=== PATIENT | male | born 1960 | race Caucasian/White ===

== ENCOUNTER 2016-08-08 17:34 | Inpatient (IN) ==
[2016-08-08 18:31] LABS: Basophils # 0.1 10*3/uL (0.0-0.2); Basophils % 0.6 % (0.0-0.8); Eosinophils # 0.2 10*3/uL (0.0-0.87); Eosinophils % 2.4 % (0.00-10.9); Hematocrit 49.7 VOL% (42.0-52.0); Hemoglobin 16.7 GM/DL (14.0-18.0); Immature Granulocytes % 0.3 %; Immature Granulocytes Absolute 0.03 #; Mean Corpuscular HGB Conc 33.6 GM/DL (32-36); Mean Corpuscular Hemoglobin 29 PG (27-34); Mean Corpuscular Volume 87.3 FL (87-102); Mean Platelet Volume 11.1 FL (9.6-12.0); Monocytes # 0.8 10*3/uL (0.11-0.8); Monocytes % 8.3 % (1.7-12.7); Neutrophils # 5.6 10*3/uL (1.4-7.4); Neutrophils % 57.4 % (38.7-73.9); Platelet Count 209 10*3/uL (130-400); Red Blood Count 5.69 10*6/uL (3.8-5.5); Red Cell Distribution Width 13.6 % (9.3-17.3); White Blood Count 9.7 10*3/uL (4.5-13.71)
--- NOTE | 2016-08-08 18:33 | CT Report ---
CT head/brain wo con Indication: Right-sided facial numbness. Comparison: None. Technique: CT of the brain was performed without administration of intravenous contrast. Findings: There is no evidence of acute intracranial hemorrhage, mass, or infarction. Ventricles appear within normal limits. The basal cisterns are patent. Nonspecific increased attenuation is noted within the sagittal and transverse sinuses. This could represent slow flow or thrombus. No significant abnormality is otherwise demonstrated to involve the posterior fossa or cerebellum. Orbits and globes demonstrate no evidence of significant pathology. The paranasal sinuses are clear. No significant abnormality is demonstrated to involve the mastoid air cells. The calvarium and overlying soft tissues demonstrate no evidence of acute pathology. Impression: 1. Increased attenuation present within the sagittal and transverse sinuses is nonspecific in appearance and may reflect evidence of slow flow. MRI brain without intravenous contrast administration is recommended to exclude acute ischemia. Evaluation of flow-voids within the transverse and sagittal sinus additionally can be performed with noncontrast enhanced MRI brain. 08/08/2016 6:27 PM PROCEDURE INTERPRETED AT [facility] DEPARTMENT OF RADIOLOGY Final Report Signed by: Dr. Juan Miller
--- NOTE | 2016-08-08 18:34 | XRay Report ---
XR chest 2V Indication: Right-sided facial numbness. Comparison: None. Technique: PA and lateral chest x-ray was performed. Findings: The heart size is within normal limits. The mediastinal contour demonstrates no significant abnormality. The lungs are clear. Bones and soft tissues demonstrate no acute abnormality. Impression: 1. No active cardiopulmonary disease. 08/08/2016 6:31 PM PROCEDURE INTERPRETED AT [facility] DEPARTMENT OF RADIOLOGY Final Report Signed by: Dr. Juan Miller
[2016-08-08 18:41] LABS: PT Patient Result 10.1 SECS
[2016-08-08 19:06] LABS: Blood Urea Nitrogen 7 MG/DL (7-18); Glucose 94 MG/DL (74-106); Magnesium 2.2 MG/DL (1.8-2.4); Osmolality,Calculated 283.8 MOS/KG (273-304); Sodium 144 MMOL/L (136-145); Troponin I Only < 0.015 NG/ML (0.00-0.045)
--- NOTE | 2016-08-08 19:41 | Emergency Department Note ---
Stacia Handy Brittany, am scribing for, and in the presence of, Suleman Miller MD 18:29. Paul Handy Robert M, MD, personally performed the services described in this documentation, ascribed by Mana Palomo in my presence, and it is both accurate and complete 941 . Arrival - Arrival Chief Complaint: Neuro Stated Complaint: RIGHT SIDE PAIN/R SIDE OF FACE NUMB ED Nursing Triage Note: reports stabbing type pain in his right lower quadrant for about a month. reports at about 1530 he developed a h/a and tingling in the right side of his face. reports that he gets dizzy and its hard to keep his balance when he stands up. Mode of Arrival: Ambulatory Limitations: No Limitations Source: Patient - History of Present Illness HPI Narrative: This is a 55 y/o white male,who presents to the ED for neurological evaluation. He states last night he started to have right sided facial numbness. This morning he reports feeling dizzy and an unsteady balance. Pt states at 1500 today he was unable to close his right eye. He also reports tingling to the right hand fingers. He denies any cough or congestion. Pt has no other complaints/pain in the ED at this time. Pt has a PMHx of HTN. Pt denies a surgical Hx. Pt denies a family medical Hx. Pt is a current every day smoker, but denies the use of alcohol or street drugs. Onset (ago): hour(s) (Started last night) Consistency: constant Severity: moderate Allergies/Adverse Reactions: Allergies Allergy/AdvReac Type Severity Reaction Status Date / Time lisinopril Allergy Unknown/Unable Verified 08/08/16 17:46 to obtain Home Medications: Home Medications Medication Instructions Recorded Confirmed Type Irbesartan 150 mg PO DAILY 08/08/16 08/08/16 History amLODIPine [Norvasc] 10 mg PO DAILY 08/08/16 08/08/16 History Review of System - Review of System 12 point system: reviewed and no additional remarkable complaints except as stated - Review of System Respiratory: Absent: cough Neurological: Present: headache, numbness (Numbness to the right side of the face), abnormal gait, other (Tingling to the right fingers) Medical,Surgical,& Family Hx - Medical History Cardio: History of: Hypertension - Social History Smoking Status: Current every day smoker Frequency of Alcohol Use: None Type of Drug Use: None Exam Vital Signs: Vital Signs Temperature 98.1 F 08/08/16 17:41 Pulse Rate 83 08/08/16 18:04 Respiratory Rate 20 08/08/16 18:04 Blood Pressure 163/109 08/08/16 18:04 O2 Sat by Pulse Oximetry 98 08/08/16 18:04 - General General appearance: alert, in no apparent distress - Head Head exam: Present: atraumatic, normocephalic, normal inspection - Eye Eye exam: Present: normal appearance, PERRL, EOMI - ENT ENT exam: Present: normal exam, normal oropharynx, mucous membranes moist - Neck Neck exam: Present: normal inspection, full ROM. Absent: tenderness - Chest Chest inspection: Present: normal inspection. Absent: abscess - Respiratory Respiratory exam: Present: normal lung sounds bilaterally. Absent: prolonged expiratory phase, rales, respiratory distress, rhonchi, stridor, wheezes - Cardiovascular Cardiovascular exam: Present: regular rate, normal rhythm, normal heart sounds. Absent: murmur, rubs, gallop, clicks - Abdominal Exam Abdominal exam: Present: soft. Absent: distention, tenderness, guarding, rebound, rigidity - Extremities Exam Extremities exam: Present: normal inspection, full ROM. Absent: tenderness, pedal edema, calf tenderness - Back Exam Back exam: Present: normal inspection, full ROM. Absent: tenderness, muscle spasm, rashes - Neurological Exam Neurological exam: Present: alert, oriented X3, CN II-XII intact, other (Mild decreased strenght to the right side) - Psychiatric Psychiatric exam: Present: normal affect, normal mood. Absent: agitated, anxious - Skin Skin exam: Present: warm, intact. Absent: diaphoresis Course - Consultations Consultation #1: The hospitalists will evaluate and admit the patient. Dr. Pb Hall was notified. Time: 19:41 Results - Labs CBC & BMP: 08/08/16 18:22 08/08/16 18:22 Lab Results: I have reviewed the patients labs Labs: Lab Results WBC 9.7 10*3/uL (4.5-13.71) 08/08/16 18:22 RBC 5.69 10*6/uL (3.8-5.5) H 08/08/16 18:22 Hgb 16.7 GM/DL (14.0-18.0) 08/08/16 18:22 Hct 49.7 VOL% (42.0-52.0) 08/08/16 18:22 MCV 87.3 FL (87-102) 08/08/16 18:22 MCH 29 PG (27-34) 08/08/16 18: MCHC 33.6 GM/DL (32-36) 08/08/16 18:22 RDW 13.6 % (9.3-17.3) 08/08/16 18:22 Plt Count 209 10*3/uL (130-400) 08/08/16 18:22 MPV 11.1 FL (9.6-12.0) 08/08/16 18: Neut % (Auto) 57.4 % (38.7-73.9) 08/08/16 18:22 Lymph % (Auto) 31.0 % (21.2-54.2) 08/08/16 18:22 [place] % (Auto) 8.3 % (1.7-12.7) 08/08/16 18:22 Eos % (Auto) 2.4 % (0.00-10.9) 08/08/16 18: Baso % (Auto) 0.6 % (0.0-0.8) 08/08/16 18: Neut # (Auto) 5.6 10*3/uL (1.4-7.4) 08/08/16 18:22 Lymph # (Auto) 3.0 10*3/uL (1.4-4.0) 08/08/16 18:22 [place] # (Auto) 0.8 10*3/uL (0.11-0.8) 08/08/16 18:22 Eos # (Auto) 0.2 10*3/uL (0.0-0.87) 08/08/16 18:22 Baso # (Auto) 0.1 10*3/uL (0.0-0.2) 08/08/16 18:22 Immature Gran % 0.3 % 08/08/16 18:22 Nucleated RBC % 0.0 /100WBC 08/08/16 18:22 Immature Gran # 0.03 # 08/08/16 18:22 Nucleated RBCs # 0.00 10*3/uL 08/08/16 18:22 INR 1.0 08/08/16 18:22 PT Patient/Control Mix 10.1 SECS 08/08/16 18:22 Sodium 144 MMOL/L (136-145) 08/08/16 18:22 Potassium 4.0 MMOL/L (3.5-5.1) 08/08/16 18:22 Chloride 107 MMOL/L (98-107) 08/08/16 18:22 Carbon Dioxide 28 MMOL/L (21-32) 08/08/16 18:22 Anion Gap 13.0 MMOL/L (5.0-15.0) 08/08/16 18:22 BUN 7 MG/DL (7-18) 08/08/16 18:22 Creatinine 0.90 MG/DL (0.70-1.30) 08/08/16 18:22 GFR Calculation 120 ML/MIN 08/08/16 18:22 BUN/Creatinine Ratio 7.00 RATIO (6.00-20.00) 08/08/16 18:22 Glucose 94 MG/DL (74-106) 08/08/16 18:22 Calculated Osmolality 283.8 MOS/KG (273-304) 08/08/16 18:22 Calcium 9.0 MG/DL (8.5-10.1) 08/08/16 18:22 Magnesium 2.2 MG/DL (1.8-2.4) 08/08/16 18:22 Total Creatine Kinase 136 U/L (39-308) 08/08/16 18:22 CK-MB (CK-2) 1.3 U/L (0.5-3.6) 08/08/16 18:22 Troponin I < 0.015 NG/ML (0.00-0.045) 08/08/16 18:22 Lipase 96.0 U/L (73-393) 08/08/16 18:22 - EKG EKG results: interpreted by [facility], WNL, sinus rhythm - Diagnostic Findings Procedure: Chest x-ray: report reviewed by me Disposition Clinical Impression: right facial paresthesias/weakness Case discussed with: patient, patient's family Disposition: Still a Patient Condition: Stable Time of Disposition: 19:40
--- NOTE | 2016-08-08 20:24 | Hospitalist History & Physical ---
Assessment and Plan (1) History of unsteady gait Status: Acute Current Visit: Yes (2) Facial numbness Status: Acute Current Visit: Yes (3) Right sided weakness Status: Acute Current Visit: Yes (4) Stroke-like symptoms Status: Acute Current Visit: Yes (5) Abdominal pain Status: Acute Assessment and plan: Plan for this patient #1 admit the patient to our service #2 monitored bed #3 neurological evaluation #4Number for MRI evaluation #5 carotid Dopplers #6 fasting lipid profile #7 aspirin #8 CT scan of abdomen Current Visit: Yes History of Present Illness Chief complaint: facial numbness History of present illness: Mr. Guzman is a 55 year old male past medical history significant for hypertension who presents to our hospital tonight. Patient reports last night that he noticed that he had right facial numbness. He thought he slept wrong on it and didn't think that much about it. This morning he woke up and feel dizzy and had a unsteady balance. Today at approximate 3 p.m. he is closed and he reports a tingling in his right index and third finger. He denies cough and just congestion reports a headache any really has no other complaints at this time other than some abdominal pain. Regarding his abdominal pain he's been having a dull pain is been going off and on for over a year. Seems like it's increased last night also. Slight ripping sensation and sharp. Patient came to our hospital for further evaluation I was consulted to admit him. Home Medications Medication Instructions Recorded Confirmed Type Irbesartan 150 mg PO DAILY 08/08/16 08/08/16 History amLODIPine [Norvasc] 10 mg PO DAILY 08/08/16 08/08/16 History Allergies Allergy/AdvReac Type Severity Reaction Status Date / Time lisinopril Allergy Unknown/Unable Verified 08/08/16 17:46 to obtain Medical,Surgical,& Family Hx - Medical History Cardio: History of: Hypertension - Surgical History Abdominal Surgeries: Surgical HX of: Appendectomy Orthopedic Surgeries: Surgical HX of;: Orthopedic Surgery - Family History Family History: Reports;: Family Hypertension, Family Stroke - Social History Smoking Status: Current every day smoker Frequency of Alcohol Use: None Type of Drug Use: None 12 point system: reviewed and no additional remarkable complaints except as stated Exam - Constitutional Vitals: Period Temp Pulse Resp BP Sys/Zhong Pulse Ox Last 24 Hr 98.1 F 83-94 18-20 163-169/101-109 96-98 - General General appearance: alert, in no apparent distress - Head Head exam: Present: atraumatic, normocephalic, normal inspection - Eye Eye exam: Present: normal appearance, PERRL, EOMI - ENT ENT exam: Present: normal exam, normal oropharynx, mucous membranes moist - Neck Neck exam: Present: normal inspection, full ROM. Absent: tenderness - Chest Chest inspection: Present: normal inspection. Absent: abscess - Respiratory Respiratory exam: Present: normal lung sounds bilaterally. Absent: prolonged expiratory phase, rales, respiratory distress, rhonchi, stridor, wheezes - Cardiovascular Cardiovascular exam: Present: regular rate, normal rhythm, normal heart sounds. Absent: murmur, rubs, gallop, clicks - Abdominal Exam Abdominal exam: Present: soft. Absent: distention, tenderness, guarding, rebound, rigidity - Extremities Exam Extremities exam: Present: normal inspection, full ROM. Absent: tenderness, pedal edema, calf tenderness - Back Exam Back exam: Present: normal inspection, full ROM. Absent: tenderness, muscle spasm, rashes - Neurological Exam Neurological exam: Present: alert, oriented X3, CN II-XII intact, other (Mild decreased strenght to the right side) - Psychiatric Psychiatric exam: Present: normal affect, normal mood. Absent: agitated, anxious - Skin Skin exam: Present: warm, intact. Absent: diaphoresis Results - Labs CBC & BMP: 08/08/16 18:22 08/08/16 18:22 Quality Measures - Stroke Onset of Symptoms Date: 08/08/16 Onset of Symptoms Time: 15:00
[2016-08-08] MEDS ORDERED: LABETALOL 20 MG/4 ML SYRINGE IV PRN (20:28)
--- NOTE | 2016-08-08 20:38 | CT Report ---
CT abdomen pelvis w con Indication: Right lower quadrant abdominal pain. History of umbilical hernia. Comparison: None. Technique: CT of the abdomen and pelvis was performed following administration of intravenous contrast. Findings: No acute findings are suggested within the lower chest. A small to moderate hiatal hernia is demonstrated. Liver is unremarkable in appearance. Portal vein is patent. Gallbladder demonstrates no significant abnormality. The spleen, pancreas, adrenal glands, and kidneys demonstrate no evidence of acute pathology. Aorta demonstrates diffuse intimal calcification particularly involving the infrarenal abdominal aorta. A small fusiform segment of enlargement measuring up to 2.6 cm in transverse dimension and 2.0 cm AP dimension is located just caudal the WESLEY origin. Bilateral common iliac arteries demonstrate diffuse intimal calcification. The urinary bladder is largely distended and otherwise unremarkable. The prostate appears upper limits of normal in size to minimally enlarged measuring 4.9 x 5 cm. Numerous sigmoid diverticula are present with additional diverticula noted involving the descending colon, and distal transverse large bowel. Ileocecal valve is grossly unremarkable. Appendix is normal in size. With exception of the previously described hiatal hernia, the stomach is unremarkable. Duodenum demonstrates no significant pathology. SMA is patent. Bony structures demonstrate no evidence of acute pathology. Soft tissues and musculature the body wall are unremarkable. Impression: 1. No acute findings are demonstrated. 2. Minimal fusiform enlargement of the infrarenal abdominal aorta is present just caudal the WESLEY origin. 3. Colonic diverticulosis is demonstrated without evidence of diverticulitis. 4. Other findings as detailed. 08/08/2016 8:25 PM PROCEDURE INTERPRETED AT [facility] DEPARTMENT OF RADIOLOGY Final Report Signed by: Dr. Juan Miller
[2016-08-09 06:45] LABS: Risk Ratio 4.11; VLDL CHOLESTEROL 27.4 MG/DL
[2016-08-09] MEDS ORDERED: amLODIPine 10 MG TABLET PO SCH (09:00)
[2016-08-09] MEDS ORDERED: ASPIRIN 325 MG TABLET PO SCH (09:00)
[2016-08-09] MEDS ORDERED: IRBESARTAN 150 MG TABLET PO SCH (09:00)
[2016-08-09] MEDS ORDERED: ENOXAPARIN 40 MG/0.4 ML SYRINGE SUBCUT SCH (09:00)
--- NOTE | 2016-08-09 09:20 | Ultrasound Report ---
Exam: US carotid duplex BI Date: 08/09/2016 4:00 AM Indication: Weakness, right facial numbness Technique: Duplex scan of the bilateral carotid arteries using B-mode/grayscale imaging and Doppler spectral analysis and color flow. Findings: Right Flow velocities centimeters per second Common carotid artery: 69 Proximal ICA: 65 Distal ICA: 75 External carotid artery: 97 Vertebral artery: 63 with antegrade flow ICA/CCA ratio: 1.1 Measurements in millimeters Distal ICA: 5 Left: Flow velocities centimeters per second Common carotid artery: 73 Proximal ICA: 60 Distal ICA: 83 External carotid artery: 93 Vertebral artery: 40 with antegrade flow ICA/CCA ratio: 1.1 Measurements in millimeters Distal ICA: 5 No significant atherosclerotic plaque or luminal stenosis is evident within either internal carotid artery. Minimal primarily calcified atherosclerotic plaque is noted at the left proximal internal carotid artery. Color flow is present in all visualized vessels with Doppler analysis. Impression: No significant atherosclerotic disease or luminal stenosis within either internal carotid artery. Today studies were performed utilizing indirect NASCET criteria The ultrasound images were stored and captured PROCEDURE INTERPRETED AT [facility] DEPARTMENT OF RADIOLOGY Final Report Signed by: Jet Arriola
--- NOTE | 2016-08-09 10:34 | EKG Report ---
Stationary ECG Study [facility] ER Test Date: 08/08/2016 6:04:27 PM Pat Name: SULEMAN SIGALA Department: Room: 323 Gender: M [employer]: OZZY : 1960 Requested by: Suleman Miller Order Number: [id number] Reading MD: STEPHANIE TRUJILLO Intervals [place] Rate: 82 P: 77 AR: 190 QRS: 86 QRSD: 83 T: 69 QT: 356 QTc: 395 Interpretive Statements SINUS RHYTHM Electronically Signed On 08-09-16 12:45:56 [employer] by STEPHANIE TRUJILLO [email or web address]
--- NOTE | 2016-08-09 13:28 | Magnetic Resonance Report ---
MRI brain without contrast Indication: Right facial numbness, ataxia and vertigo Comparison: CT 08 August 2016 Technique: Axial sagittal and coronal imaging of the brain is performed without contrast. T1, T2, FLAIR and diffusion weighted sequences are performed. Findings: No evidence of restricted diffusion seen. No evidence of intracranial hemorrhage, mass, mass effect or midline shift is seen. There is moderate diffuse cerebral atrophy. Otherwise the brain parenchyma has normal signal and differentiation. The ventricles and cisterns are appropriate in caliber. Posterior fossa, mid brain and pituitary gland appear within normal limits. There is increased fluid signal in the mastoid air cells on the right. Right frontal sinus disease and right ethmoid sinus disease is also seen. No other evidence of cranial or skull base abnormality seen. Impression: Fluid in the right mastoid air cells, may indicate mastoiditis. Right frontal and right ethmoidal sinus disease. PROCEDURE INTERPRETED AT [facility] DEPARTMENT OF RADIOLOGY Final Report Signed by: Dr. Shahab Priest
--- NOTE | 2016-08-09 16:11 | Neurology Consult Note ---
History of Present Illness History of present illness: Mr. Guzman is a 55 year old right-handed white gentleman with past medical history significant for hypertension, history of smoking who who is admitted to our hospital last night with right facial paresthesias. Patient reports last night that he noticed that he had right facial numbness. He thought he slept wrong on it and didn't think that much about it. This morning he woke up and feel dizzy and had a unsteady gait. In the afternoon of the day of admission he reported a tingling in his right index and third finger. He denies cough and just congestion, reports a headache and really has no other complaints at this time other than some abdominal pain. Regarding his abdominal pain he's been having a dull pain and is been going off and on for over a year. MRI of the brain revealed no acute abnormalities. Carotid ultrasound is unremarkable. Lipid profile is okay. Patient reported taking aspirin at least 4 days a week. Home Medications Medication Instructions Recorded Confirmed Type Irbesartan 150 mg PO DAILY 08/08/16 08/08/16 History amLODIPine [Norvasc] 10 mg PO DAILY 08/08/16 08/08/16 History Allergies Allergy/AdvReac Type Severity Reaction Status Date / Time lisinopril Allergy Unknown/Unable Verified 08/08/16 17:46 to obtain 12 point system: reviewed and no additional remarkable complaints except as stated Medical,Surgical,& Family Hx - Medical History Cardio: History of: Hypertension - Surgical History Abdominal Surgeries: Surgical HX of: Appendectomy Orthopedic Surgeries: Surgical HX of;: Orthopedic Surgery (left and right knee, right foot) - Family History Family History: Reports;: Family Hypertension, Family Stroke - Social History Smoking Status: Current every day smoker Frequency of Alcohol Use: None Type of Drug Use: None Exam - Constitutional Vitals: Period Temp Pulse Resp BP Sys/Zhong Pulse Ox Last 24 Hr 97.9 F-98.4 F 72-91 16-20 116-153/72-101 91-97 Exam: GENERAL: Patient is in no acute distress. NECK: Neck is supple. There is no JVD. No carotid bruits present. No thyroid masses. CVS: First and second heart sounds are normal. There is no S3 present. Regular rate and rhythm. RESPIRATORY: Lungs are clear to auscultation without any rales or rhonchi. ABDOMEN: Soft and non-tender. Bowel sounds are present. There is no hepatosplenomegaly. EXT: There is no palpable edema. Peripheral pulses are present. Skin: No rashes Central Nervous system: General: Alert, awake and Oriented x 3 Speech: Fluent Comprehension: Intact and normal Facial expressions: Normal Cranial Nerves: CN1/Olfactory: Normal CN II/ Optic: Normal, Visual Cazares unreliable CN III, and : [place] & EOMI CN V: Normal & intact CN VII: face is symmetric CNVIII: Normal CN XI/X/XI/XII: Intact and Normal Motor: Bulk and Tone is normal. Strength in the right 5/5 Strength in the left 5/5 Sensory: Grossly intact for all the modalities of PP, LT and temp sense Reflexes: 1+ and symmetrical Cerebellar function: Normal finger to nose and heel to boucher testing. Gait: Normal heel to heel and toe to toe and tandem walk. Results - Labs CBC & BMP: 08/08/16 18:22 08/08/16 18:22 Assessment and Plan (1) TIA (transient ischemic attack) Status: Acute Assessment and plan: Stop aspirin Plavix 75 mg daily Okay to go home from neuro standpoint Follow-up in 4 weeks Current Visit: Yes (2) Smoking Status: Acute Assessment and plan: Counseled him regarding cessation of smoking. Spent 15 minutes in counseling only Current Visit: Yes Specialty Discharge - Follow Up or Referrals Follow up with: Antonio Vo MD [Physician] - 1 Month - Discharge Medications No Action amLODIPine [Norvasc] 10 mg PO DAILY Irbesartan 150 mg PO DAILY
--- NOTE | 2016-08-09 16:27 | Discharge Summary ---
Hospital Course - Hospital Course Hospital Course: Mr. Guzman is a 55-year-old white male past palpation and hypertension who presented to our ER yesterday. Patient reported the previous night he noted that he had a right facial numbness. He also noted that when he woke up the following morning he felt dizzy and unsteady balance. Yesterday at approximately 3 p.m. he had a tingling sensation in his right hand involving his index finger and third finger. He had no real other complaints for some abdominal pain is been going on for a year. We did a CT scan of his abdomen in the emergency room and no abnormalities were noted with a CT scan. I admitted this patient for stroke workup. He had a MRI which was negative and a carotid ultrasound which was negative Dr. Wily Vital saw him in consultation and recommended he stop aspirin and be placed on Plavix. I'm going to discharge the patient and with outpatient follow-up with Dr. Vo. I will provide him with needed prescriptions - Time spent with patient Time with patient DS: Greater than 30 minutes Diagnosis - Discharge Diagnosis (1) History of unsteady gait Status: Acute (2) Facial numbness Status: Acute (3) Right sided weakness Status: Acute (4) Stroke-like symptoms Status: Acute (5) Abdominal pain Status: Acute Specialty Discharge - Follow Up or Referrals Follow up with: Antonio Vo MD [Physician] - 09/12/16 9:45 am (PLEASE BRING INSURANCE CARDS, PHOTO ID, AND ALL MEDICATIONS TO YOUR APPOINTMENT PLEASE.) - Discharge Medications No Action amLODIPine [Norvasc] 10 mg PO DAILY Irbesartan 150 mg PO DAILY Discharge Plan - Discharge Data Disposition: Disch To Home/Self Care Condition at Discharge: Stable Discharge Diet: advance to your usual diet - Discharge Medications New Clopidogrel [Plavix] 75 mg PO DAILY #30 tablet HYDROcodone/ACETAMIN 7.5-325 [[place] 7.5-325] 1 tablet PO Q4H PRN #20 tablet PRN Reason: Pain Moderate (4-7) Continue Irbesartan 150 mg PO DAILY #30 tablet amLODIPine [Norvasc] 10 mg PO DAILY #30 tablet - Follow Up or Referral Follow Up: Antonio Vo MD [Physician] - 09/12/16 9:45 am (PLEASE BRING INSURANCE CARDS, PHOTO ID, AND ALL MEDICATIONS TO YOUR APPOINTMENT PLEASE.) - Forms/Instructions Exam - Constitutional Vitals: Period Temp Pulse Resp BP Sys/Zhong Pulse Ox Last 24 Hr 97.9 F-98.4 F 72-91 16-20 116-153/72-101 91-97 General General appearance: alert, in no apparent distress - Head Head exam: Present: atraumatic, normocephalic, normal inspection - Eye Eye exam: Present: normal appearance, PERRL, EOMI - ENT ENT exam: Present: normal exam, normal oropharynx, mucous membranes moist - Neck Neck exam: Present: normal inspection, full ROM. Absent: tenderness - Chest Chest inspection: Present: normal inspection. Absent: abscess - Respiratory Respiratory exam: Present: normal lung sounds bilaterally. Absent: prolonged expiratory phase, rales, respiratory distress, rhonchi, stridor, wheezes - Cardiovascular Cardiovascular exam: Present: regular rate, normal rhythm, normal heart sounds. Absent: murmur, rubs, gallop, clicks - Abdominal Exam Abdominal exam: Present: soft. Absent: distention, tenderness, guarding, rebound, rigidity - Extremities Exam Extremities exam: Present: normal inspection, full ROM. Absent: tenderness, pedal edema, calf tenderness - Back Exam Back exam: Present: normal inspection, full ROM. Absent: tenderness, muscle spasm, rashes - Neurological Exam Neurological exam: Present: alert, oriented X3, CN II-XII intact, other (Mild decreased strenght to the right side) - Psychiatric Psychiatric exam: Present: normal affect, normal mood. Absent: agitated, anxious - Skin Skin exam: Present: warm, intact. Absent: diaphoresis Discharge Results Labs on day of discharge: Labs from last 24 hours 08/09/16 05:22 Triglycerides 137 Cholesterol 181 LDL Cholesterol 126.0 VLDL Cholesterol 27.4 HDL Cholesterol 44 Heart Disease Risk Ratio 4.11 DS: Provider Date of admission: 08/08/16 20:28 Primary care physician: . No PCP Attending physician on admission: Pb Hall MD Discharging clinician: Pb Hall MD
[2016-08-09] MEDS ORDERED: CLOPIDOGREL 75 MG TABLET PO SCH (16:30)
[2016-08-09 17:35] VITALS: BP 120/81
== END 2016-08-09 18:25 | disposition home or self-care (01) | DRG 69 ==
LOC: N.ED 17:34 → N.EDINP 20:28 → N.3E 21:59
PROVIDERS: ADMIT Internal Medicine; ATTEND Internal Medicine

== ENCOUNTER 2018-12-23 05:26 | Inpatient (IN) ==
[2018-12-23] MEDS ORDERED: FAMOTIDINE 20 MG TABLET PO ONE (06:00)
[2018-12-23] MEDS ORDERED: PREGABALIN 75 MG CAPSULE PO ONE (06:00)
[2018-12-23] MEDS ORDERED: ceFAZolin 1,000 MG in SYRINGE 1 EACH IV ONE (06:00)
[2018-12-23] MEDS ORDERED: VANCOMYCIN INJ 1,000 MG in SODIUM CHLORIDE 0.9% 250 ML IV ONE (06:00)
[2018-12-23] MEDS ORDERED: ACETAMINOPHEN 500 MG TABLET PO ONE (06:00)
[2018-12-23] MEDS ORDERED: VANCOMYCIN 1,000 MG VIAL ONE (06:06)
[2018-12-23] MEDS ORDERED: ceFAZolin 1,000 MG VIAL ONE ×2 (06:07→07:15)
[2018-12-23] MEDS ORDERED: SCOPOLAMINE 1.5 MG PATCH TRANSDERM ONE (06:26)
[2018-12-23] MEDS ORDERED: LACTATED RINGERS 1,000 ML IV SCH (06:30)
[2018-12-23] MEDS ORDERED: BACITRACIN OINT 0.9 GM PACK TOP ONE (06:32)
[2018-12-23] MEDS ORDERED: TRANEXAMIC ACID 1,000 MG/10 ML VIAL ONE ×2 (06:32→07:15)
[2018-12-23] MEDS ORDERED: FAMOTIDINE 20 MG TABLET ONE (06:34)
[2018-12-23] MEDS ORDERED: ACETAMINOPHEN 500 MG TABLET ONE (06:34)
[2018-12-23] MEDS ORDERED: PREGABALIN 75 MG CAPSULE ONE (06:34)
[2018-12-23] MEDS ORDERED: DEXAMETHASONE 4 MG/1 ML VIAL ONE (06:38)
[2018-12-23] MEDS ORDERED: BUPIVACAINE SPINAL 0.75% 2 ML AMP SPINAL ONE ×2 (06:38→09:16)
[2018-12-23] MEDS ORDERED: ROPIVACAINE 0.5% 30 ML VIAL ONE (06:38)
[2018-12-23] MEDS ORDERED: MIDAZOLAM 2 MG/2 ML VIAL ONE (06:39)
[2018-12-23] MEDS ORDERED: diphenhydrAMINE CAP 25 MG CAPSULE PO PRN (09:02)
[2018-12-23] MEDS ORDERED: ONDANSETRON 4 MG/2 ML VIAL IV PRN (09:02)
[2018-12-23] MEDS ORDERED: MORPHINE 4 MG/1 ML VIAL IV PRN ×2 (09:02)
[2018-12-23] MEDS ORDERED: MAGNESIUM HYDROXIDE SUSP 30 ML UDCUP PO PRN (09:02)
[2018-12-23] MEDS ORDERED: ZALEPLON 5 MG CAPSULE PO PRN (09:02)
[2018-12-23] MEDS ORDERED: oxyCODONE IR 5 MG TABLET PO PRN ×2 (09:02)
[2018-12-23] MEDS ORDERED: ePHEDrine 50 MG/ML AMP ONE (09:16)
[2018-12-23] MEDS ORDERED: ONDANSETRON 4 MG/2 ML VIAL ONE (09:16)
[2018-12-23] MEDS ORDERED: fentaNYL 100 MCG/2 ML VIAL ONE (09:16)
[2018-12-23] MEDS ORDERED: PHENYLEPHRINE 1 MG/10 ML SYRINGE IV ONE (09:16)
[2018-12-23] MEDS ORDERED: LACTATED RINGERS 1,000 ML IV ONE (09:17)
[2018-12-23] MEDS: LACTATED RINGERS 1,000 ML IV SCH ×2 (09:55→16:58)
[2018-12-23] MEDS: KETOROLAC 30 MG/1 ML VIAL IV SCH ×3 (10:24→20:50)
[2018-12-23] MEDS: PANTOPRAZOLE 40 MG TABLET PO SCH (10:25)
[2018-12-23] MEDS: ACETAMINOPHEN 500 MG TABLET PO SCH ×2 (13:44→18:12)
[2018-12-23] MEDS: ceFAZolin 2,000 MG in PREMIX 1 EACH IV SCH ×2 (15:25→23:03)
[2018-12-23] MEDS: DOCUSATE SODIUM 100 MG CAPSULE PO SCH (20:49)
[2018-12-23] MEDS ORDERED: ALFUZOSIN 10 MG TABLET PO SCH (21:00)
[2018-12-24] MEDS: ACETAMINOPHEN 500 MG TABLET PO SCH ×2 (01:05→06:15)
[2018-12-24] MEDS: LACTATED RINGERS 1,000 ML IV SCH (01:05)
[2018-12-24] MEDS: KETOROLAC 30 MG/1 ML VIAL IV SCH (02:47)
[2018-12-24] MEDS ORDERED: FONDAPARINUX 2.5 MG/0.5 ML SYRINGE SUBCUT SCH (03:03)
[2018-12-24 04:53] LABS: Basophils % 0.2 % (0.0-0.8); Eosinophils # 0.1 10*3/uL (0.0-0.87); Eosinophils % 0.8 % (0.00-10.9); Hematocrit 37.7 VOL% (42.0-52.0); Hemoglobin 11.8 GM/DL (14.0-18.0); Immature Granulocytes % 0.4 %; Immature Granulocytes Absolute 0.04 #; Lymphocytes # 2.6 10*3/uL (1.4-4.0); Lymphocytes % 27.9 % (21.2-54.2); Mean Corpuscular HGB Conc 31.3 GM/DL (32-36); Mean Corpuscular Volume 89.5 FL (87-102); Mean Platelet Volume 10.9 FL (9.6-12.0); Neutrophils % 62.7 % (38.7-73.9); Platelet Count 221 T/CUMM (130-400); Red Blood Count 4.21 MC/CUMM (3.8-5.5); Red Cell Distribution Width 14.6 % (9.3-17.3); White Blood Count 9.3 T/CUMM (4-12)
[2018-12-24 05:22] LABS: Calcium 8.3 MG/DL (8.5-10.1); Osmolality,Calculated 274.8 MOS/KG (273-304)
[2018-12-24] MEDS ORDERED: LOSARTAN 50 MG TABLET PO SCH (09:00)
[2018-12-24] MEDS ORDERED: amLODIPine 10 MG TABLET PO SCH (09:00)
[2018-12-24] MEDS: PANTOPRAZOLE 40 MG TABLET PO SCH (09:32)
[2018-12-24] MEDS: DOCUSATE SODIUM 100 MG CAPSULE PO SCH (09:32)
[2018-12-24 11:21] VITALS: BP 135/78
[2018-12-24] MEDS ORDERED: CELECOXIB 200 MG CAPSULE PO SCH (15:03)
== END 2018-12-24 16:29 | disposition home health service (06) | DRG 470 ==
LOC: N.OR 05:26 → N.SDSINP 06:07 → N.3E 09:02
PROVIDERS: ADMIT Orthopaedic Surgery; ATTEND Orthopaedic Surgery